=== PATIENT | male | born 1955 ===

== ENCOUNTER 2024-11-24 10:03 | Outpatient (AMB) | payer OTHER, SELFPAY ==
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
== END 2024-11-24 10:46 | disposition home or self-care (01) ==
LOC: HO.HMGAL 10:03
PROVIDERS: PCP Internal Medicine; Visit Provider Registered Nurse Emergency
DX: J30.89 Other allergic rhinitis (principal)
CPT/HCPCS: 95117; 95165

== ENCOUNTER 2024-12-30 09:04 | Outpatient (AMB) | payer OTHER, SELFPAY ==
--- OUTSIDE RECORDS SUMMARY | 2024-12-30 08:30 | XMS_ITS | Encounter Summary ---
Author Organization [facility] Address [address] [place] [address] Care Team Providers Care Board Of Directors Name Role Phone True Aly DO Primary Care Provider [phone] Reason for Visit * Reason Comments Foot Pain B/L corn and calluse s Encounter Details Date Type Department Care Team (Late Contact Info) Description 12/30/2024 8:30 AM EDT Office Visit Orthopedic Surgery - [place] [address] [facility] [address] [place] [phone] Rajiv Hopper, DPM 175 [facility] [address] [place] [phone] Social History Tobacco Use Types Packs/Day Years [...] on file documented as of this encounter Plan of Treatment Upcoming Encounters Date Type Department Care Team (Late st Contact Info) Description 01/11/2025 11:00 AM EDT Ancillary Procedure [facility] - [facility] [address] [facility] [address] [place] [phone] 02/25/2025 8:15 AM EST Office Visit Orthopedic Surgery - [place] [address] [phone] Rajiv Hopper, DPM [address] [phone] documented as of this encounter Visit Diagnoses Not on filedocumented in this encounter Care Teams Board Of Directors Relationship Specialty Start Date End Date True Aly DO [address] [place] [phone] PCP - General 10/11/23 documented as of this encounter
--- OUTSIDE RECORDS SUMMARY | 2024-12-30 10:37 | XMS_ITS | Clinical Summary ---
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 Complications: No immediate complications. Estimated Blood Loss: Estimated blood loss: none. Procedure: Pre-Anesthesia Assessment: - ASA Grade Assessment: III - A patient with severe systemic disease. - After reviewing the risks and benefits, the patient was deemed in satisfactory condition to undergo the procedure. After I obtained informed consent, the scope was passed under direct vision. Throughout the procedure, the patient's blood pressure, pulse, and oxygen saturations were monitored continuously.The Olympus Colonoscope was introduced through the anus and advanced to the cecum, identified by appendiceal orifice and ileocecal valve. The colonoscopy was performed without difficulty. The patient tolerated the procedure well. The quality of the bowel preparation was adequate. Findings: Scattered small and large-mouthed diverticula were found in the entire colon. Non-bleeding internal hemorrhoids were found during retroflexion. The hemorrhoids were medium-sized. The exam was otherwise without abnormality on direct and retroflexion views. Procedure Code(s): --- Professional --- G0121, Colorectal cancer screening; colonoscopy on individual not meeting criteria for high risk Diagnosis Code(s): --- Professional --- Z12.11, Encounter for screening for malignant neoplasm of colon CPT copyright 2020 [employer]. All rights reserved. The codes documented in this report are preliminary and upon gray tender review may be revised to meet current compliance requirements. Gregg Higuera MD 07/27/2024 2:26:04 PM This report has been signed electronically.Gregg Higuera MD Number of Addenda: 0 Note Initiated On: 07/27/2024 2:01 PM Scope In: Scope Out: Endoscopy Department at [facility] - [address] [place] [phone] Procedure Note Gregg Higuera MD - 07/27/2024 [facility] GI Patient Name: Win Underwood Procedure Date: 07/27/2024 2:01 PM Date of : 1955 Age: 69 Room: ROOM 14 Gender: Male Note Status: Finalized Attending MD: Gregg Higuera MD, Procedure Date No Time: 07/27/2024 Procedure: Colonoscopy Indications: Screening for colorectal malignant neoplasm Providers: Gregg Higuera MD Referring MD: Gregg Higuera MD Medicines: Monitored Anesthesia Care Complications: No immediate complications. Estimated Blood Loss: Estimated blood loss: none. Procedure: Pre-Anesthesia Assessment: - ASA Grade Assessment: III - A patient with severe systemic disease. - After reviewing the risks and benefits, thepatient was deemed in satisfactory condition to undergo the procedure. After I obtained informed consent, the scope was passed under direct vision. Throughout theprocedure, the patient's blood pressure, pulse, and oxygen saturations were monitored continuously.The Olympus Colonoscope was introduced through the anus and advanced to the cecum, identified by appendiceal orifice and ileocecal valve. The colonoscopy was performed without difficulty. The patient tolerated the procedure well. The quality of the bowel preparation was adequate. Findings: Scattered small and large-mouthed diverticula were found in the entire colon. Non-bleeding internal hemorrhoids were found during retroflexion. The hemorrhoids were medium-sized. The exam was otherwise without abnormality ondirect and retroflexion views. Procedure Code(s): --- Professional --- G0121, Colorectal cancer screening; colonoscopy on individual not meeting criteria for high risk Diagnosis Code(s): --- Professional --- Z12.11, Encounter for screening for malignantneoplasm of colon CPT copyright 2020 [employer] [employer]. All rights reserved. The codes documented in this report are preliminary and upon gray tender reviewmay be revised to meet current compliance requirements. Gregg Higuera MD 07/27/2024 2:26:04 PM This report has been signed electronically.Gregg Higuera MD Number of Addenda: 0 Note Initiated On: 07/27/2024 2:01 PM Scope In: Scope Out: Endoscopy Department at [facility] - [address] [place] [phone] IMPRESSION: - Diverticulosis in the entire examined colon. - Non-bleeding internal hemorrhoids. - The examination was otherwise normal on directand retroflexion views. - No specimens collected. Recommendation: - Discharge patient to home. - High fiber diet. - Continue present medications. - Repeat colonoscopy in 10 years forsurveillance. - Return to GI office PRN. Gregg Higuera MD GI~PROCEDURE ORDERABLES Final Result from Last 3 Months or Most Recently Relevant to Health Maintenance Insurance [employer] Care Teams Assistant To The Vice President Relationship Specialty Start Date End Date True Aly DO [address] [place] [phone] PCP - General 10/11/23
== END 2024-12-30 09:04 | disposition home or self-care (01) ==
LOC: HO.HMGAL 09:04
PROVIDERS: PCP Internal Medicine; Visit Provider Registered Nurse Emergency
DX: J30.89 Other allergic rhinitis (principal)
CPT/HCPCS: 95117; 95165

== ENCOUNTER 2025-01-27 13:29 | Outpatient (AMB) | payer OTHER, SELFPAY ==
--- OUTSIDE RECORDS SUMMARY | 2025-01-27 19:07 | XMS_ITS | Clinical Summary ---
Author Organization [facility] adflyer Address [address] [facility] [address] [place] [address] Phone Care Team Providers Care [employer] Name Role Phone CiriloYvonne templetonrossi ESQUIVEL Primary Care Provider [phone] Allergies No known active allergies Medications metFORMIN [...] Encounters Date Type Department Care Team Description 01/12/2025 1:30 PM EDT Ancillary Procedure [facility] Cardiology [facility] [address] [place] [address] 01/11/2025 11:00 AM EDT Ancillary Procedure [facility] Cardiology [facility] [address] [place] [address] Encounter for adjustment or management of cardiac device 12/30/2024 8:30 AM EDT Office Visit Orthopedic Surgery [facility] [address] [place] [address] Rajiv Hopper, DPM Hammer toe of left foot (Primary Dx); Hypertrophy of nail; Corns and callosities; Acquired hammer toe of right foot 12/21/2024 Telephone [facility] Cardiology [facility] [address] [facility] [address] [address] [place] [address] Herve Dillon MD 12/09/2024 Telephone [facility] [address] [facility] [facility] [address] [address] [place] [address] Mayela Berry MA 12/08/2024 8:30 AM EDT Lab Draw Station - [address] [facility] [address] [facility] [place] [phone] First degree heart block (Primary Dx); Second degree heart block; Palpitations; Second degree AV block; Bradycardia 11/17/2024 Telephone [facility] [address] [facility] [address] [place] [address] Herve Dillon MD 11/13/2024 Telephone [facility] [address] [place] [phone] Herve Dillon MD 11/10/2024 8:10 AM EDT Office Visit [facility] Cardiology [facility] [address] [place] [phone] Holly Pratt NP Bradycardia (Primary Dx); Second degree AV block; Hyperlipidemia, unspecified hyperlipidemia type 11/10/2024 Telephone [facility] [address] [place] [phone] Holly Pratt NP 11/09/2024 8:45 AM EDT Office Visit Orthopedic Surgery [facility] [address] [place] [phone] Rajiv Hopper, DPM Hammer toe of left foot (Primary Dx); Hypertrophy of nail; Bilateral femoral artery stenosis ([facility] V24); Pain in toe of left foot; Difficulty walking; Corns and callosities; Pain in toe of right foot; Acquired hammer toe of right foot from Last 3 Months Surgical History Surgery Date Site/Laterality Comments GALLBLADDER SURGERY N/A Medical History Medical History Date Comments HLD (hyperlipidemia) Obesity Depression Type II diabetes mellitus ([facility] V24, [facility] V28) Hypertension Cataracts, bilateral Hypertrophy of nail Hammer toe of left foot Bilateral femoral artery stenosis ([facility] V24) Corns and callosities Erythrocytosis Diabetes ([facility] V24, [facility] V28) Anxiety and depression Social History Tobacco Use Types Packs/Day Years Used Date Smoking Tobacco: Former Cigarettes Smokeless Tobacco: Never Tobacco Cessation:Counseling Given: Not Answered Comments:Quit 27 years---02/20/24 Alcohol Use Standard Drinks/Week Comments Not Currently 0 (1 standard drink = 0.6 oz pur e alcohol) quit 28 yrs ago--02-20-24 Interpersonal Safety Answer Date Record ed Physical Abuse Unrecognized value 07/27/2024 Verbal Abuse Unrecognized value 07/27/2024 Sex and Gender Information Value Date [...] Care Team (Late st Contact Info) Description 02/25/2025 8:15 AM EST Office Visit Orthopedic Surgery - [place] [address] [phone] Rajiv Hopper, DPM [address] [address] Health Maintenance Due Date Last Done Comments [...] on patient's age to complete this topic Medical Devices Implanted Type Area Bibliographic Services Specialist Device Identifier Shelf Expiration Date Model / Serial / Lot Abbt-Stju 2272 Assurity Mri(Tm) [id number] Implanted:02/2025 (Quantity not on file) Cardiac Pacemaker [facility] 2272 ASSURITY MRI(TM) / [id number] / Abbt-Stju Assurity Mri [id number] Implanted:02/2025 (Quantity not on file) Cardiac Pacemaker [facility] MRI 2272 / [id number] / Procedures Procedure Name Priority Date/Time Associated Diagnosis Comments CARDIAC DEVICE CHECK- REMOTE- MURJ Routine 01/12/2025 1:25 PM EDT CARDIAC DEVICE CHECK- IN CLINIC- MURJ Routine 01/11/2025 1:40 PM EDT Encounter for adjustment or management of cardiac device HEMOGLOBIN A1C Routine 12/14/2024 9:36 AM EDT DM (diabetes mellitus) (CMS/HCC V24, CMS/HCC V28) HTN (hypertension) BASIC METABOLIC PANEL Routine 12/14/2024 9:36 AM EDT DM (diabetes mellitus) (CMS/HCC V24, CMS/HCC V28) HTN (hypertension) MAGNESIUM Routine 12/08/2024 9:08 [...] 12-LEAD Routine 11/10/2024 9:20 AM EDT Bradycardia MICROALBUMIN CREATININE URINE RATIO Routine 09/08/2024 11:29 AM EDT Laboratory tests ordered as part of a complete physical exam (CPE) DM (diabetes mellitus) (CMS/HCC V24, CMS/HCC V28) HLD (hyperlipidemia) HTN (hypertension) BMI 34.0-34.9,adult Allergies Depression LIPID PANEL WITH REFLEX TO DIRECT LDL Routine 09/08/2024 11:29 AM EDT Laboratory tests ordered as part of a complete physical exam (CPE) DM (diabetes mellitus) (CMS/HCC V24, CMS/HCC V28) HLD (hyperlipidemia) HTN (hypertension) BMI 34.0-34.9,adult Allergies Depression COLONOSCOPY Routine 07/27/2024 2:26 PM EDT Colon cancer screening from Last 3 Months or Most Recently Relevant to Health Maintenance Results * Cardiac device check - Remote- MURJ (01/12/2025 1:25 PM EDT) Date Time Interrogation Session [id number] CV DEVICE CHECK Type Interrogation Session Remote Scheduled CV DEVICE CHECK Implantable Pulse Generator Bibliographic Services Specialist [facility] CV DEVICE CHECK Implantable Pulse Generator Type IPG CV DEVICE CHECK Implantable Pulse Generator Model 2272 Assurity MRI(TM) CV DEVICE CHECK Implantable Pulse Generator Serial Number [id number] CV DEVICE CHECK Implantable Pulse Generator Implant Date 20241217 CV DEVICE CHECK Battery Remaining Percentage 95.50 CV DEVICE CHECK Battery Remaining Longevity 115.0 CV DEVICE CHECK Battery Voltage 3.070 CV D EVICE CHECK Battery DIAMOND SELECTOR Trigger 2.600 CV DEVICE CHECK Battery Status Middle of Service CV DEVICE CHECK Duke Statistic RA Percent Paced 5.30 CV DEVICE CHECK Duke Statistic RV Percent Paced 99.00 CV DEVICE CHECK Atrial Tachy Statistic AT/AF Marine Percent 1.00 CV DEVICE CHECK Lead Channel Sensing Intrinsic Amplitude 3.100 CV DEVICE CHECK Lead Channel Setting Sensing Sensitivity 0.50 CV DEVICE CHECK Lead Channel Impedance Value 530 CV DEVICE CHECK Lead Channel Pacing Threshold Amplitude 0.500 CV DEVICE CHECK Lead Channel Pacing Threshold Pulse Width 0.4 CV DEVICE CHECK Lead Channel RA Pacing Threshold Date 2025-01-06 CV DEVICE CHECK Lead Channel Setting Pacing Amplitude 3.000 CV DEVICE CHECK Lead Channel Setting Pacing Pulse Width 0.4 CV DEVICE CHECK Lead Channel Sensing Intrinsic Amplitude 12.000 CV DEVICE CHECK Lead Channel Setting Sensing Sensitivity 2.00 CV DEVICE CHECK Lead Channel Impedance Value 350 CV DEVICE CHECK Lead Channel Pacing Threshold Amplitude 1.000 CV DEVICE CHECK Lead Channel Pacing Threshold Pulse Width 0.2 CV DEVICE CHECK Lead Channel RV Pacing Threshold Date 2025-01-06 CV DEVICE CHECK Lead Channel Setting Pacing Amplitude 1.250 CV DEVICE CHECK Lead Channel Setting Pacing Pulse Width 0.2 CV DEVICE CHECK Duke Setting Mode (NBG Code) DDD CV DEVICE CHECK Duke Setting Lower Rate Limit 60 CV DEVICE CHECK Duke Setting AT Mode Switch Rate 180 CV DEVICE CHECK Duke Setting Maximum Tracking Rate 130 CV DEVICE CHECK Duke Setting Maximum Sensor Rate 130 CV DEVICE CHECK Duke Setting PAV Delay 200 CV DEVICE CHECK Duke Setting YUE Delay 150 CV DEVICE CHECK Date of Service 2025-02-18 CV DEVICE CHECK Anatomical Region Laterality Modality Device Interroga tion 01/06/2025 2:00 AM EDT Impressions 01/12/2025 12:57 PM EDT Initial Home Monitor Setup * Device interrogation for initial monitor setup * Alerts or Events: 18 PAF / Longest 30 min 58 sec./ Meds include Eliquis * Battery: Battery is at 95.5%, 9.58 yrs * Programmed parameters reviewed * Presenting rhythm reviewed * Heart Rate Histograms reviewed Narrative Procedure Note Herve Dillon MD - 01/12/2025 IMPRESSION: Initial Home Monitor Setup * Device interrogation for initial monitor setup * Alerts or Events: 18 PAF / Longest 30 min 58 sec./ Meds include Eliquis * Battery: Battery is at 95.5%, 9.58 yrs * Programmed parameters reviewed * Presenting rhythm reviewed * Heart Rate Histograms reviewed Herve Dillon MD CV IMPLANTABLE CARDIAC DEV ICE PROCEDURES Final Result * CARDIAC DEVICE CHECK- IN CLINIC- MUR (01/11/2025 1:40 PM EDT) Date Time Interrogation Session [id number] CV DEVICE CHECK Implantable Pulse Generator Bibliographic Services Specialist [place] CV DEVICE CHECK Implantable Pulse Generator Type IPG CV DEVICE CHECK Implantable Pulse Generator Model Assurity MRI 2272 CV DEVICE CHECK Implantable Pulse Generator Serial Number [id number] CV DEVICE CHECK Implantable Pulse Generator Implant Date 20241217 CV DEVICE CHECK Battery Voltage 3.070 CV D EVICE CHECK Battery Status Beginning of Service CV DEVICE CHECK Duke Statistic RA Percent Paced 4.90 CV DEVICE CHECK Duke Statistic RV Percent Paced 99.91 CV DEVICE CHECK Lead Channel Sensing Intrinsic Amplitude 3.800 CV DEVICE CHECK Lead Channel Setting Sensing Sensitivity 0.50 CV DEVICE CHECK Lead Channel Impedance Value 538 CV DEVICE CHECK Lead Channel Pacing Threshold Amplitude 0.500 CV DEVICE CHECK Lead Channel Pacing Threshold Pulse Width 0.4 CV DEVICE CHECK Lead Channel RA Pacing Threshold Date 2025-01-11 CV DEVICE CHECK Lead Channel Setting Pacing Amplitude 1.500 CV DEVICE CHECK Lead Channel Setting Pacing Pulse Width 0.4 CV DEVICE CHECK Lead Channel Sensing Intrinsic Amplitude 12.000 CV DEVICE CHECK Lead Channel Setting Sensing Sensitivity 2.00 CV DEVICE CHECK Lead Channel Impedance Value 363 CV DEVICE CHECK Lead Channel Pacing Threshold Amplitude 0.750 CV DEVICE CHECK Lead Channel Pacing Threshold Pulse Width 0.2 CV DEVICE CHECK Lead Channel RV Pacing Threshold Date 2025-01-11 CV DEVICE CHECK Lead Channel Setting Pacing Amplitude 1.130 CV DEVICE CHECK Lead Channel Setting Pacing Pulse Width 0.2 CV DEVICE CHECK Duke Setting Mode (NBG Code) DDDR CV DEVICE CHECK Duke Setting Lower Rate Limit 60 CV DEVICE CHECK Duke Setting AT Mode Switch Rate 180 CV DEVICE CHECK Duke Setting Maximum Tracking Rate 130 CV DEVICE CHECK Duke Setting Maximum Sensor Rate 130 CV DEVICE CHECK Duke Setting PAV Delay 200 CV DEVICE CHECK Duke Setting YUE Delay 150 CV DEVICE CHECK Anatomical Region Laterality Modality Device Interroga tion 01/11/2025 Impressions 01/12/2025 12:57 PM EDT Normal In-Office: No Events * Normal Device Function * Alerts or events: None * Battery: SAL, 11.00 yrs * Sensing, impedance and thresholds reviewed and tested * Presenting Rhythm: AP-VS 75 bpm * Underlying Rhythm: 2:1 AVB VS 40 bpm * Heart Rate Histograms reviewed, rate response turned on today. * Pacing and Detection Parameters were evaluated * Incision well approximated, no edema, redness or drainage noted, scant Dermabond remains intact. Patient advised if anything changes to call the device clinic. Narrative Procedure Note Herve Dillon MD - 01/12/2025 IMPRESSION: Normal In-Office: No Events * Normal Device Function * Alerts or events: None * Battery: SAL, 11.00 yrs * Sensing, impedance and thresholds reviewed and tested * Presenting Rhythm: AP-VS 75 bpm * Underlying Rhythm: 2:1 AVB VS 40 bpm * Heart Rate Histograms reviewed, rate response turned on today. * Pacing and Detection Parameters were evaluated * Incision well approximated, no edema, redness or drainage noted, scantDermabond remains intact. Patient advised if anything changes to call thedevice clinic. Order Referral Cardiovascular CV IMPLANTABLE CAR DIAC DEVICE PROCEDURES Final Result * Hemoglobin A1c (12/14/2024 9:36 AM EDT) Hemoglobin A1C 6.4 <6.5 % LAB CHEMISTRY METHOD 12/14/2024 1:22 PM EDT [facility] Mean Bld Glu Estim. 137 mg/dL LAB CHEMISTRY METHOD 12/14/2024 1:22 PM EDT [facility] Blood Venous blood specimen / Unknown Venipuncture / Unknown 12/14/2024 9:36 AM EDT 12/14/2024 9:36 AM EDT us Darinel Matthews LAB BLOOD ORDERABLES Final Resul t [facility] [address] [place] [address], * (ABNORMAL) Basic metabolic panel (12/14/2024 9:36 AM EDT) Only the most recent of2 resultswithin the time period is included. Sodium 136 133 - 145 mmol/L LAB CHEMISTRY METHOD 12/14/2024 11:28 AM [facility] Potassium 4.5 3.5 - 5.5 mmol/L LAB CHEMISTRY METHOD 12/14/2024 11:28 AM [facility] Chloride 99 96 - 110 mmol/L LAB CHEMISTRY METHOD 12/14/2024 11:28 AM [facility] CO2 29 21 - 32 mmol/L LAB CHEMISTRY METHOD 12/14/2024 11:28 AM [facility] Anion Gap 8 3 - 11 LAB CHEMISTRY METHOD 12/14/2024 11:28 AM [facility] Glucose 105(H) 70 - 100 mg/dL LAB CHEMISTRY METHOD 12/14/2024 11:28 AM [facility] BUN 17 5 - 25 mg/dL LAB CHEMISTRY METHOD 12/14/2024 11:28 AM [facility] Creatinine 1.07 0.70 - 1.30 mg/dL LAB CHEMISTRY METHOD 12/14/2024 11:28 AM [facility] eGFR 74 >=60 mL/min/1. 73m2 LAB CHEMISTRY METHOD 12/14/2024 11:28 AM [facility] Comment:Calculation based on the Chronic Kidney Disease Epidemiology Collaboration (CKD-EPI) equation refit without adjustment for race. BUN/Creatinine Ratio 15.9 LAB CHEMISTRY METHOD 12/14/2024 11:28 AM [facility] Calcium 9.8 8.5 - 10.5 mg/dL LAB CHEMISTRY METHOD 12/14/2024 11:28 AM EDT [facility] Blood Venous blood specimen / Unknown Venipuncture / Unknown 12/14/2024 9:36 AM EDT 12/14/2024 9:36 AM EDT us Darinel Josebrigidatom LAB BLOOD ORDERABLES Final Resul t Performing Organization Address [facility]/ZIP Co de Phone Number [facility] [address] [place] [address], [place] [phone] * Thyroid stimulating hormone with reflex to free t4 and free t3 (12/08/2024 9:08 AM EDT) TSH 1.08 0.40 - 4.00 mcIU/mL LAB CHEMISTRY METHOD 12/08/2024 2:35 PM EDT [facility] Blood Venous blood specimen / Unknown Venipuncture / Unknown 12/08/2024 9:08 AM EDT 12/08/2024 9:43 AM EDT us Holly Pratt NP LAB BLOOD ORDERABLES Final Res ult Performing Organization Address [facility] Co de Phone Number [facility] [address] [place] [address], [place] [phone] * Prothrombin time with INR (12/08/2024 9:08 AM EDT) Protime 12.2 10.6 - 13.9 sec LAB COAGULATION METHOD 12/08/2024 9:56 AM EDT [facility] INR 1.0 LAB COAGULATION METHOD 12/08/2024 9:56 AM EDT [facility] Blood Venous blood specimen / Unknown Venipuncture / Unknown 12/08/2024 9:08 AM EDT 12/08/2024 9:44 AM EDT us Herve Dillon MD LAB BLOOD ORDERABLES Final Result [facility] [address] [place] [address], * (ABNORMAL) Complete blood count (12/08/2024 9:08 AM EDT) [facility] Signature WBC 6.0 4.8 - 10.8 K/mcL LAB HEMETOLOGY METHOD 12/08/2024 9:55 AM EDT [facility] RBC 6.30(H) 4.50 - 5.50 M/mcL LAB HEMETOLOGY METHOD 12/08/2024 9:55 AM EDT [facility] Hemoglobin 18.5(H) 13.5 - 17.5 g/dL LAB HEMETOLOGY METHOD 12/08/2024 9:55 AM EDT [facility] Hematocrit 55.3(H) 42.0 - 54.0 % LAB HEMETOLOGY METHOD 12/08/2024 9:55 AM EDT [facility] MCV 87.6 79.0 - 98.0 FL LAB HEMETOLOGY METHOD 12/08/2024 9:55 AM EDT [facility] MCH 29.3 27.0 - 32.0 pcg LAB HEMETOLOGY METHOD 12/08/2024 9:55 AM EDT [facility] MCHC 33.5 32.0 - 37.0 g/dL LAB HEMETOLOGY METHOD 12/08/2024 9:55 AM EDT [facility] RDW 12.9 11.0 - 15.0 % LAB HEMETOLOGY METHOD 12/08/2024 9:55 AM EDT [facility] Platelets 235 130 - 400 K/mcL LAB HEMETOLOGY METHOD 12/08/2024 9:55 AM EDT [facility] MPV 8.7 7.0 - 11.0 FL LAB HEMETOLOGY METHOD 12/08/2024 9:55 AM EDT [facility] NRBC 0.0 <1.0 % LAB HEMETOLOGY METHOD 12/08/2024 9:55 AM EDT [facility] NRBC Absolute 0.00 <0.10 K/mcL LAB HEMETOLOGY METHOD 12/08/2024 9:55 AM EDT [facility] Blood Venous blood specimen / Unknown Venipuncture / Unknown 12/08/2024 9:08 AM EDT 12/08/2024 9:44 AM EDT Herve Dillon MD LAB BLOOD ORDERABLES Final Result Performing Organization Address City/Va Hospital/ZIP Co de Phone Number [facility] [address] [place] [address], [place] [phone] * Magnesium (12/08/2024 9:08 AM EDT) [facility] Magnesium 2.4 1.9 - 2.6 mg/dL LAB CHEMISTRY METHOD 12/08/2024 1:08 PM EDT [facility] Blood Venous blood specimen / Unknown Venipuncture / Unknown 12/08/2024 9:08 AM EDT 12/08/2024 9:43 AM EDT Holly Pratt NP LAB BLOOD ORDERABLES Final Res ult [facility] [address] [place] [address], [place] [phone] * ECG 12 lead (11/10/2024 9:20 AM EDT) Ventricular Rate ECG 38 BPM GEM[facility] Atrial Rate 38 BPM GEM[facility] P-R Interval 282 ms GEMUSE QRS Duration 80 ms GEMUSE Q-T Interval 464 ms GEMUSE QTc 368 ms GEMUSE P Wave [place] 76 degrees GEMUSE R [place] 12 degrees GEMUSE T [place] 63 degrees GEMUSE ECG Interpretation Normal sinus rhythm with second degree AV block 2:1 Right atrial enlargement Septal infarct (cited on or before 20-FEB-2024) Abnormal ECG When compared with ECG of 21-OCT-2024 09:29, Premature atrial complexes are no longer Present Confirmed by Kane LIZ JOHN ([id number]) on 11/12/2024 4:39:32 PM GEM[facility] 11/10/2024 8:18 AM EDT 11/12/2024 4:39 PM EDT us Holly Pratt CHEMICAL LABORATORY ASSISTANT ECG ORDERABLES Edited Result - Final GEMUSE * Lipid panel with reflex to direct LDL (09/08/2024 11:29 AM EDT) Cholesterol 142 0 - 200 mg/dL LAB CHEMISTRY METHOD 09/08/2024 5:16 PM EDT [facility] Triglycerides 94 0 - 150 mg/dL LAB CHEMISTRY METHOD 09/08/2024 5:16 PM EDT [facility] HDL 51 >=40 mg/dL LAB CHEMISTRY METHOD 09/08/2024 5:16 PM EDT [facility] LDL Calculated 72 0 - 100 mg/dL LAB CHEMISTRY METHOD 09/08/2024 5:16 PM EDT [facility] VLDL Cholesterol Dagoberto 18.8 mg/dL LAB CHEMISTRY METHOD 09/08/2024 5:16 PM EDT [facility] Non HDL Chol. (LDL+VLDL) 91 <145 mg/dL LAB CHEMISTRY METHOD 09/08/2024 5:16 PM EDT [facility] Chol/HDL Ratio 2.8 0.0 - 4.4 LAB CHEMISTRY METHOD 09/08/2024 5:16 PM EDT [facility] Blood Venous blood specimen / Unknown Venipuncture / Unknown 09/08/2024 11:29 AM EDT 09/08/2024 11:29 AM EDT us Darinel Matthews LAB BLOOD ORDERABLES Final Resul t Performing Organization Address [facility]/ZIP Co de Phone Number [facility] [address] [place] [address], [place] [phone] * (ABNORMAL) Microalbumin creatinine urine ratio (09/08/2024 11:29 AM EDT) Creatinine, Urine 27.0 mg/dL LAB CHEMISTRY METHOD 09/08/2024 5:36 PM EDT [facility] Microalb, Ur 11.1 0.0 - 29.0 mg/L LAB CHEMISTRY METHOD 09/08/2024 5:36 PM EDT [facility] Microalb/Creat Ratio 41(H) <30 mg/g creat LAB CHEMISTRY METHOD 09/08/2024 5:36 PM EDT [facility] Urine Urine specimen obtained by clean catch procedure / Unknown Non-blood Collection / Unknown 09/08/2024 11:29 AM EDT 09/08/2024 11:29 AM EDT [facility] LAB URINE ORDERABLES Final Resul t Performing Organization Address [facility]/ZIP Co de Phone Number [facility] [address] [place] [address], [place] [phone] * COLONOSCOPY Anesthesia - [facility]; [facility] ENDOSCOPY (07/27/2024 2:26 PM EDT) Anatomical Region [...] office PRN. Narrative 07/27/2024 2:26 PM EDT [facility] GI Patient Name: Win Underwood Procedure Date: [...] malignant neoplasm of colon CPT copyright 2020 [employer]. All rights reserved. The codes documented in this report are preliminary and upon design lead review may be revised to meet current compliance requirements. Gregg Higuera MD 07/27/2024 2:26:04 PM This report has been signed electronically.Gregg Higuera MD Number of Addenda: 0 Note Initiated On: 07/27/2024 2:01 PM Scope In: Scope Out: Endoscopy Department at [facility] - [address] [place] [phone] Procedure Note Gregg Higuera MD - 07/27/2024 [facility] GI Patient Name: Win Underwood Procedure Date: [...] for malignantneoplasm of colon CPT copyright 2020 [employer]. All rights reserved. The codes documented in this report are preliminary and upon design lead reviewmay be revised to meet current compliance requirements. Gregg Higuera MD 07/27/2024 2:26:04 PM This report has been signed electronically.Gregg Higuera MD Number of Addenda: 0 Note Initiated On: 07/27/2024 2:01 PM Scope In: Scope Out: Endoscopy Department at [facility] - [address] [place] [phone] IMPRESSION: - Diverticulosis in the entire examined colon. - Non-bleeding internal hemorrhoids. - The examination was otherwise normal on directand retroflexion views. - No specimens collected. Recommendation: - Discharge patient to home. - High fiber diet. - Continue present medications. - Repeat colonoscopy in 10 years forsurveillance. - Return to GI office PRN. us Gregg Higuera MD GI~PROCEDURE ORDERABLES Final Result from Last 3 Months or Most Recently Relevant to Health Maintenance Insurance [employer] MED[employer]ARE Care Teams [employer] Police Relationship Specialty Start Date End Date True Aly DO [address] [place] [phone] PCP - General 10/11/23
== END 2025-01-27 13:29 | disposition home or self-care (01) ==
LOC: HO.HMGAL 13:29
PROVIDERS: PCP Internal Medicine; Visit Provider Registered Nurse Emergency
DX: J30.89 Other allergic rhinitis (principal)
CPT/HCPCS: 95117; 95165

== ENCOUNTER 2025-02-24 10:10 | Outpatient (AMB) | payer OTHER, SELFPAY ==
--- OUTSIDE RECORDS SUMMARY | 2025-02-24 19:20 | XMS_ITS | Clinical Summary ---
Author Organization [facility] [employer] Address [address] [facility] [place] [address] Phone Care Team Providers Care Publications Inspector Name Role Phone Cirilojareth Truerossi ESQUIVEL Primary Care Provider [phone] Allergies No known active allergies Medications metFORMIN [...] 1 (one) time each day. Active lisinopril (PRINIVIL,ZESTRI L) 40 mg tablet Take 1 tablet (40 mg total) by mouth 1 (one) time each day. Active hydroCHLOROthiaz jen (MICROZIDE) 12.5 mg capsule Take 1 capsule [...] USE TO TEST BLOOD SUGAR ONCE DAILY 5 Active lancets (OneTouch Delica Plus Lancet) 30 gauge USE TO TEST BLOOD SUGAR ONCE DAILY 5 Active latanoprost (XALATAN) 0.005 % ophthalmic solution 5 Active Mounjaro 5 mg/0.5 mL injection ADMINISTER 5 MG UNDER THE SKIN WEEKLY 5 Active triamcinolone acetonide 0.025 % lotion 5 Active polyethylene glycol (Golytely) 236-22.74-6.74 -5.86 gram solution Take 4L by mouth once for one dose. May substitue any PEG. Starting at 6PM the night before your procedure drink 1 8oz glasses at your own pace until you complete half of the gallon. Finish 2nd half of the gallon 5 hours before your procedure. 4000 mL 5 Active apixaban (Eliquis) 5 mg tabletIndication s:Atrial fibrillation, unspecified type (CMS/HCC V24, CMS/HCC V28) TAKE 1 TABLET(5 MG) BY MOUTH TWICE DAILY 180 tablet 2 5 Active Active Problems Problem Noted Date Diagnosed Date [...] Encounters Date Type Department Care Team Description 02/09/2025 9:50 AM EST Ancillary Procedure [facility] Cardiology [facility] [address] [place] [address] 02/09/2025 Telephone [facility] Cardiology [facility] [address] [place] [address] Kyung Shirley PA 01/12/2025 1:30 PM EDT Ancillary Procedure [facility] Cardiology [facility] [address] [place] [address] 01/11/2025 11:00 AM EDT Ancillary Procedure [facility] Cardiology [facility] - [address] [place] [phone] Encounter for adjustment or management of cardiac device 12/30/2024 8:30 AM EDT Office Visit [facility] [place] [address] [facility] [address] [place] [address] Rajiv Hopper, DPM Hammer toe of left foot (Primary Dx); Hypertrophy of nail; Corns and callosities; Acquired hammer toe of right foot 12/21/2024 Telephone [facility] Cardiology [facility] [address] [place] [address] Herve Dillon MD 12/09/2024 Telephone [facility] [address] [place] [address] Mayela Berry MA 12/08/2024 8:30 AM EDT Lab Draw Station - [address] [facility] [address] [facility] [phone] First degree heart block (Primary Dx); Second degree heart block; Palpitations; Second degree AV block; Bradycardia from Last 3 Months Surgical History Surgery Date Site/Laterality Comments GALLBLADDER SURGERY N/A Medical History Medical History Date Comments HLD (hyperlipidemia) Obesity Depression Type II diabetes mellitus ([facility] V24, [facility] V28) Hypertension Cataracts, bilateral Hypertrophy of nail Hammer toe of left foot Bilateral femoral artery stenosis ([facility] V24) Corns and callosities Erythrocytosis Diabetes ([facility] V24, [facility] V28) Anxiety and depression Social History Tobacco [...] AM EST Office Visit [facility] [place] [address] [phone] Rajiv Hopper, DPSandhya [address] [phone] Health Maintenance Due Date Last Done Comments [...] this topic Medical Devices Implanted Type Area Oil Rig Roughneck Device Identifier Shelf Expiration Date Model / Serial / Lot Isidro-Stmelany 2272 Assurity Mri(Tm) [id number] Implanted:02/2025 (Quantity not on file) Cardiac Pacemaker [place] [employer] 2272 ASSURITY MRI(TM) / [id number] / Abbt-Stju Assurity Mri 2272 [id number] Implanted:02/2025 (Quantity not on file) Cardiac Pacemaker [employer] [facility] [employer] MRI 2272 / [id number] / Procedures Procedure Name Priority Date/Time Associated Diagnosis Comments CARDIAC DEVICE CHECK- REMOTE- MURJ Routine 02/09/2025 9:46 AM EST CARDIAC DEVICE CHECK- REMOTE- MURJ Routine 01/12/2025 [...] 9:08 AM EDT Second degree AV block MICROALBUMIN CREATININE URINE RATIO Routine 09/08/2024 [...] * Cardiac device check - Remote- MURJ (02/09/2025 9:46 AM EST) Only the most recent of2 resultswithin the time period is included. Date Time Interrogation Session [id number] CV DEVICE CHECK Type Interrogation Session Remote Scheduled CV DEVICE CHECK Implantable Pulse Generator Oil [employer] Roughneck [employer]i CV DEVICE CHECK Implantable Pulse Generator Type IPG CV DEVICE CHECK Implantable Pulse Generator Model 2272 Assurity MRI(TM) CV DEVICE CHECK Implantable Pulse Generator Serial Number [id number] CV DEVICE CHECK Implantable Pulse Generator Implant Date 20241217 CV DEVICE CHECK Battery Remaining Percentage 95.50 CV DEVICE CHECK Battery Remaining Longevity 130.0 CV DEVICE CHECK Battery Voltage 3.040 CV D EVICE CHECK Battery INTELLIGENCE APPLICATIONS Trigger 2.600 CV DEVICE CHECK Battery Status Middle of Service CV DEVICE CHECK Duke Statistic RA Percent Paced 12.00 CV DEVICE CHECK Duke Statistic RV Percent Paced 99.00 CV DEVICE CHECK Atrial Tachy Statistic AT/AF [place] Percent 1.00 CV DEVICE CHECK Lead Channel Sensing Intrinsic Amplitude 3.200 CV DEVICE CHECK Lead Channel Setting Sensing Sensitivity 0.50 CV DEVICE CHECK Lead Channel Impedance Value 560 CV DEVICE CHECK Lead Channel Pacing Threshold Amplitude 0.500 CV DEVICE CHECK Lead Channel Pacing Threshold Pulse Width 0.4 CV DEVICE CHECK Lead Channel RA Pacing Threshold Date 2025-02-02 CV DEVICE CHECK Lead Channel Setting Pacing Amplitude 1.500 CV DEVICE CHECK Lead Channel Setting Pacing Pulse Width 0.4 CV DEVICE CHECK Lead Channel Sensing Intrinsic Amplitude 12.000 CV DEVICE CHECK Lead Channel Setting Sensing Sensitivity 2.00 CV DEVICE CHECK Lead Channel Impedance Value 340 CV DEVICE CHECK Lead Channel Pacing Threshold Amplitude 1.125 CV DEVICE CHECK Lead Channel Pacing Threshold Pulse Width 0.2 CV DEVICE CHECK Lead Channel RV Pacing Threshold Date 2025-02-02 CV DEVICE CHECK Lead Channel Setting Pacing Amplitude 1.375 CV DEVICE CHECK Lead Channel Setting Pacing [...] Anatomical Region Laterality Modality Device Interroga tion 02/02/2025 2:00 AM EDT Impressions 02/09/2025 9:45 AM EST Atrial Fibrillation w/Controlled V Response * Stored EGMs are consistent with or suggestive of Atrial Fibrillation with Controlled Ventricular Response * AT/AF [place]: 1% * Longest 45 minutes 58 seconds * On Eliquis Narrative Procedure Note Kyung Shirley PA - 02/09/2025 IMPRESSION: Atrial Fibrillation w/Controlled V Response * Stored EGMs are consistent with or suggestive of Atrial Fibrillationwith Controlled Ventricular Response * AT/AF [place]: 1% * Longest 45 minutes 58 seconds * On Eliquis Kyung GIFFORD CV IMPLANTABLE CARDIAC DEVICE SD OCEDURES Final Result * CARDIAC DEVICE CHECK- [facility] (01/11/2025 1:40 PM EDT) Date Time Interrogation Session [id number] CV DEVICE CHECK Implantable Pulse Generator Oil Rig Roughneck [employer]Gerogi CV DEVICE CHECK Implantable Pulse Generator Type IPG CV DEVICE CHECK Implantable Pulse Generator Model Assurity MRI 2272 CV DEVICE CHECK Implantable Pulse Generator Serial Number [id number] CV DEVICE CHECK Implantable Pulse Generator Implant [...] if anything changes to call thedevice clinic. us Order Referral Cardiovascular CV IMPLANTABLE CAR DIAC DEVICE PROCEDURES Final Result * Hemoglobin A1c (12/14/2024 9:36 AM EDT) Hemoglobin A1C 6.4 <6.5 % LAB CHEMISTRY METHOD 12/14/2024 1:22 PM EDT [facility] Mean Bld Glu Estim. 137 mg/dL LAB CHEMISTRY METHOD 12/14/2024 1:22 PM EDT [facility] Blood Venous blood specimen / Unknown Venipuncture / Unknown 12/14/2024 9:36 AM EDT 12/14/2024 9:36 AM EDT us Darinel Matthews LAB BLOOD ORDERABLES Final Resul t [facility] [address] [place] [address], [place] [phone] * (ABNORMAL) Basic metabolic panel (12/14/2024 9:36 AM EDT) Only the most recent of2 resultswithin the time period is included. Pathologist [facility] Sodium 136 133 - 145 mmol/L LAB CHEMISTRY METHOD 12/14/2024 11:28 AM [facility] Potassium 4.5 3.5 - 5.5 mmol/L LAB CHEMISTRY METHOD 12/14/2024 11:28 AM [facility] Chloride 99 96 - 110 mmol/L LAB CHEMISTRY METHOD 12/14/2024 11:28 AM [facility] CO2 29 21 - 32 mmol/L LAB CHEMISTRY METHOD 12/14/2024 11:28 AM [facility] Anion Gap 8 3 - 11 LAB CHEMISTRY METHOD 12/14/2024 11:28 AM [facility] Glucose 105(H) 70 - 100 mg/dL LAB CHEMISTRY METHOD 12/14/2024 11:28 AM [facility] BUN 17 5 - 25 mg/dL LAB CHEMISTRY METHOD 12/14/2024 11:28 AM EDT [facility] Creatinine 1.07 0.70 - 1.30 mg/dL LAB CHEMISTRY METHOD 12/14/2024 11:28 AM EDT [facility] eGFR 74 >=60 mL/min/1. 73m2 LAB CHEMISTRY METHOD 12/14/2024 11:28 AM EDT [facility] Comment:Calculation based on the Chronic Kidney Disease Epidemiology Collaboration (CKD-EPI) equation refit without adjustment for race. BUN/Creatinine Ratio 15.9 LAB CHEMISTRY METHOD 12/14/2024 11:28 AM EDT [facility] Calcium 9.8 8.5 - 10.5 mg/dL LAB CHEMISTRY METHOD 12/14/2024 11:28 AM EDT [facility] Blood Venous blood specimen / Unknown Venipuncture / Unknown 12/14/2024 9:36 AM EDT 12/14/2024 9:36 AM EDT Darinel Matthews LAB BLOOD ORDERABLES Final Resul t Performing Organization Address City/[facility]/ZIP Co de Phone Number [facility] [address] [place] [address], [place] [phone] * Thyroid stimulating hormone with reflex to free t4 and free t3 (12/08/2024 9:08 AM EDT) TSH 1.08 0.40 - 4.00 mcIU/mL LAB CHEMISTRY METHOD 12/08/2024 2:35 PM EDT [facility] Blood Venous blood specimen / Unknown Venipuncture / Unknown 12/08/2024 9:08 AM EDT 12/08/2024 9:43 AM EDT Holly Pratt NP LAB BLOOD ORDERABLES Final Res ult [facility] [address] [place] [address], [place] [phone] * Prothrombin time with INR (12/08/2024 9:08 AM EDT) [facility] Protime 12.2 10.6 - 13.9 sec LAB COAGULATION METHOD 12/08/2024 9:56 AM [facility] INR 1.0 LAB COAGULATION METHOD 12/08/2024 9:56 AM [facility] Blood Venous blood specimen / Unknown Venipuncture / Unknown 12/08/2024 9:08 AM EDT 12/08/2024 9:44 AM EDT Herve Dillon MD LAB BLOOD ORDERABLES Final Result [facility] [address] [place] [address], * (ABNORMAL) Complete blood count (12/08/2024 9:08 AM EDT) [facility] WBC 6.0 4.8 - 10.8 K/mcL LAB HEMETOLOGY METHOD 12/08/2024 9:55 AM [facility] RBC 6.30(H) 4.50 - 5.50 M/mcL LAB HEMETOLOGY METHOD 12/08/2024 9:55 AM [facility] Hemoglobin 18.5(H) 13.5 - 17.5 g/dL LAB HEMETOLOGY METHOD 12/08/2024 9:55 AM [facility] Hematocrit 55.3(H) 42.0 - 54.0 % LAB HEMETOLOGY METHOD 12/08/2024 9:55 AM [facility] MCV 87.6 79.0 - 98.0 FL LAB HEMETOLOGY METHOD 12/08/2024 9:55 AM [facility] MCH 29.3 27.0 - 32.0 pcg LAB HEMETOLOGY METHOD 12/08/2024 9:55 AM EDT [facility] MCHC 33.5 32.0 - 37.0 g/dL LAB HEMETOLOGY METHOD 12/08/2024 9:55 AM EDT [facility] RDW 12.9 11.0 - 15.0 % LAB HEMETOLOGY METHOD 12/08/2024 9:55 AM EDT [facility] Platelets 235 130 - 400 K/mcL LAB HEMETOLOGY METHOD 12/08/2024 9:55 AM EDT [facility] MPV 8.7 7.0 - 11.0 FL LAB HEMETOLOGY METHOD 12/08/2024 9:55 AM EDT [facility] NRBC 0.0 <1.0 % LAB HEMETOLOGY METHOD 12/08/2024 9:55 AM EDT [facility] NRBC Absolute 0.00 <0.10 K/mcL LAB HEMETOLOGY METHOD 12/08/2024 9:55 AM EDT [facility] Blood Venous blood specimen / Unknown Venipuncture / Unknown 12/08/2024 9:08 AM EDT 12/08/2024 9:44 AM EDT us Herve Dillon MD LAB BLOOD ORDERABLES Final Result [facility] [address] [place] [address], * Magnesium (12/08/2024 9:08 AM EDT) Magnesium 2.4 1.9 - 2.6 mg/dL LAB CHEMISTRY METHOD 12/08/2024 1:08 PM EDT [facility] Blood Venous blood specimen / Unknown Venipuncture / Unknown 12/08/2024 9:08 AM EDT 12/08/2024 9:43 AM EDT us Holly Pratt KNOT SAW OPERATOR LAB BLOOD ORDERABLES Final Res ult [facility] [address] [place] [address], [place] [phone] * Lipid panel with reflex to direct LDL (09/08/2024 11:29 AM EDT) Cholesterol 142 0 - 200 mg/dL LAB CHEMISTRY METHOD 09/08/2024 5:16 PM EDT [facility] Triglycerides 94 0 - 150 mg/dL LAB CHEMISTRY METHOD 09/08/2024 5:16 PM EDT [facility] HDL 51 >=40 mg/dL LAB CHEMISTRY METHOD 09/08/2024 5:16 PM EDT [facility] LDL Calculated 72 0 - 100 mg/dL LAB CHEMISTRY METHOD 09/08/2024 5:16 PM EDT [facility] VLDL Cholesterol Dagoberto 18.8 mg/dL LAB CHEMISTRY METHOD 09/08/2024 5:16 PM EDT [facility] Non HDL Chol. (LDL+VLDL) 91 <145 mg/dL LAB CHEMISTRY METHOD 09/08/2024 5:16 PM EDT [facility] Chol/HDL Ratio 2.8 0.0 - 4.4 LAB CHEMISTRY METHOD 09/08/2024 5:16 PM EDT [facility] Blood Venous blood specimen / Unknown Venipuncture / Unknown 09/08/2024 11:29 AM EDT 09/08/2024 11:29 AM EDT Darinel Matthews LAB BLOOD ORDERABLES Final Resul t [facility] [address] [place] [address], [place] [phone] * (ABNORMAL) Microalbumin creatinine urine ratio (09/08/2024 11:29 AM EDT) Creatinine, Urine 27.0 mg/dL LAB CHEMISTRY METHOD 09/08/2024 5:36 PM EDT [facility] Microalb, Ur 11.1 0.0 - 29.0 mg/L LAB CHEMISTRY METHOD 09/08/2024 5:36 PM EDT [facility] Microalb/Creat Ratio 41(H) <30 mg/g creat LAB CHEMISTRY METHOD 09/08/2024 5:36 PM EDT [facility] Urine Urine specimen obtained by clean catch procedure / Unknown Non-blood Collection / Unknown 09/08/2024 11:29 AM EDT 09/08/2024 11:29 AM EDT Darinel Josebrigidatom LAB URINE ORDERABLES Final Resul t [facility] [address] [place] [address], * COLONOSCOPY Anesthesia - MAC; [facility] ENDOSCOPY (07/27/2024 2:26 PM EDT) [...] office PRN. Narrative 07/27/2024 2:[address] [facility] Patient Name: Win Underwood Procedure Date: [...] malignant neoplasm of colon CPT copyright 2020 [employer]. All rights reserved. The codes documented in this report are preliminary and upon acupressurist review may be revised to meet current compliance requirements. Gregg Higuera MD 07/27/2024 2:26:04 PM This report has been signed electronically.Gregg Higuera MD Number of Addenda: 0 Note Initiated On: 07/27/2024 2:01 PM Scope In: Scope Out: Endoscopy Department at [facility] - [address] [place] [phone] Procedure Note Gregg Higuera MD - 07/27/2024 [facility] Patient Name: Win Underwood Procedure Date: [...] for malignantneoplasm of colon CPT copyright 2020 [employer]. All rights reserved. The codes documented in this report are preliminary and upon acupressurist reviewmay be revised to meet current compliance requirements. Gregg Higuera MD 07/27/2024 2:26:04 PM This report has been signed electronically.Gregg Higuera MD Number of Addenda: 0 Note Initiated On: 07/27/2024 2:01 PM Scope In: Scope Out: Endoscopy Department at [facility] - [address] [place] [phone] IMPRESSION: - Diverticulosis in the entire examined [...] Maintenance Insurance [employer] Care Teams Publications Inspector Relationship Specialty Start Date End Date True Aly DO [address] [place] [phone] PCP - General 10/11/23
== END 2025-02-24 10:11 | disposition home or self-care (01) ==
LOC: HO.HMGAL 10:10
PROVIDERS: PCP Internal Medicine; Visit Provider Registered Nurse Emergency
DX: J30.89 Other allergic rhinitis (principal)
CPT/HCPCS: 95117; 95165

== ENCOUNTER 2025-03-15 09:03 | Outpatient (AMB) | payer OTHER, SELFPAY | END 2025-03-15 09:03 | disposition home or self-care (01) | LOC: HO.HMGAL 09:03 | PROVIDERS: PCP Internal Medicine; Visit Provider Registered Nurse Emergency | DX: J30.89 Other allergic rhinitis (principal) | CPT/HCPCS: 95117; 95165 ==